=== PATIENT | female | born 1990 | race American Indian/Alaskan Native ===

== ENCOUNTER 2019-01-05 11:29 | Emergency (ER) | payer SELFPAY ==
[2019-01-05 11:36] VITALS: BP 130/71
--- NOTE | 2019-01-05 11:37 | Emergency Department Report ---
Blank Doc - Documentation Documentation: 28 y o female presents with productive cough, feeling weak, dizzy and loss of apetite x 4 days LMP: 12/07/17 CXR
--- NOTE | 2019-01-05 12:31 | XRay Report ---
ROUTINE CHEST, TWO VIEWS: HISTORY: Productive cough. The trachea, heart, mediastinal contour, lung fontenot and bony thorax are unremarkable. IMPRESSION: Unremarkable chest x-ray.
--- NOTE | 2019-01-05 14:12 | Emergency Department Report ---
- General Chief Complaint: Upper Respiratory Infection Stated Complaint: WEAKNESS/DIZZINESS/LOSS OF APPETITE Time Seen by Provider: 01/05/19 11:33 Source: patient Mode of arrival: Ambulatory Limitations: No Limitations - History of Present Illness Initial Comments: 28-year-old female presents to ED with URI symptoms 4 days. Patient reports subjective fever and chills, cough productive of sputum, generalized weakness, and oral cold sore. MD Complaint: fever, cough -: days(s) (4) Severity: moderate Quality: aching Consistency: constant Improves With: nothing Worsens With: nothing Associated Symptoms: fever, chills, cough. denies: nausea, vomiting, diarrhea - Related Data Previous Rx's Medication Instructions Recorded Last Taken Type Benzonatate [Tessalon Perles] 100 mg PO Q8HR PRN #20 capsule 01/05/19 Unknown Rx Naproxen [Naprosyn] 500 mg PO BID #20 tablet 01/05/19 Unknown Rx Allergies Allergy/AdvReac Type Severity Reaction Status Date / Time No Known Allergies Allergy Unverified 01/05/19 11:34 ED Review of Systems ROS: Stated complaint: WEAKNESS/DIZZINESS/LOSS OF APPETITE Other details as noted in HPI Comment: All other systems reviewed and negative Constitutional: weakness. denies: chills, fever Respiratory: cough Gastrointestinal: denies: abdominal pain, nausea, vomiting ED Past Medical Hx - Past Medical History Previous Medical History?: No - Surgical History Past Surgical History?: No - Social History Smoking Status: Never Smoker Substance Use Type: None - Medications Home Medications: Home Medications Medication Instructions Recorded Confirmed Last Taken Type Benzonatate [Tessalon Perles] 100 mg PO Q8HR PRN #20 capsule 01/05/19 Unknown Rx Naproxen [Naprosyn] 500 mg PO BID #20 tablet 01/05/19 Unknown Rx ED Physical Exam - General Limitations: No Limitations General appearance: alert, in no apparent distress - Head Head exam: Present: atraumatic, normocephalic - Eye Eye exam: Present: normal appearance, PERRL, EOMI - ENT ENT exam: Present: mucous membranes moist - Neck Neck exam: Present: normal inspection. Absent: tenderness - Respiratory Respiratory exam: Present: normal lung sounds bilaterally. Absent: respiratory distress - Cardiovascular Cardiovascular Exam: Present: regular rate, normal rhythm - GI/Abdominal GI/Abdominal exam: Present: soft. Absent: distended, tenderness - Extremities Exam Extremities exam: Present: normal inspection - Neurological Exam Neurological exam: Present: alert, oriented X3, CN II-XII intact, normal gait. Absent: motor sensory deficit - Psychiatric Psychiatric exam: Present: normal affect, normal mood - Skin Skin exam: Present: warm, dry, intact, normal color ED Course Vital Signs 01/05/19 11:34 Temperature 98.0 F Pulse Rate 72 Respiratory 16 Rate Blood Pressure 130/71 O2 Sat by Pulse 100 Oximetry ED Medical Decision Making - Radiology Data Radiology results: report reviewed, image reviewed - Medical Decision Making - vitals nml - CXR negative - appears nontoxic - tolrating PO, advised increased PO hydration - outpt f/u advised - return precautions given - Differential Diagnosis URI, pneumonia Critical care attestation.: If time is entered above; I have spent that time in minutes in the direct care of this critically ill patient, excluding procedure time. ED Disposition Clinical Impression: Upper respiratory infection Disposition: DC- TO HOME OR SELFCARE Is pt being admited?: No Condition: Stable Instructions: Upper Respiratory Infection (ED) Prescriptions: Naproxen [Naprosyn] 500 mg PO BID #20 tablet Benzonatate [Tessalon Perles] 100 mg PO Q8HR PRN #20 capsule PRN Reason: Cough Referrals: LATASHA QUIROS MD [Primary Care Provider] - 3-5 Days Time of Disposition: 14:12
== END 2019-01-05 14:23 | disposition home or self-care (01) ==
LOC: ED 11:29
DX: J06.9 Acute upper respiratory infection, unspecified (principal)
CPT/HCPCS: 71046